=== PATIENT | female | born 1950 | race Caucasian/White ===

== ENCOUNTER → 2016-08-22 | Outpatient (CLI) | payer MEDICARE ==
[~2016-08-22] MED LIST: AMOX1TAB64 PO; GABA300C10 PO; HYDR-3138 PO; LEVO500T8 PO; LORA0.5T PO; METO-93 PO; METO25TA91 PO; METO50TA11 PO; ONDA4TAB13 SL; OXYC10TA32 PO; OXYC5CAP4 PO; OXYC5TAB2 PO; SULF1TAB24 PO
== END | disposition home or self-care (01) ==
LOC: CFH 07:51
PROVIDERS: ATTEND Internal Medicine Hematology & Oncology
DX: Z13.820 Encounter for screening for osteoporosis (principal); M81.0 Age-related osteoporosis without current pathological fracture; C77.3 Secondary and unspecified malignant neoplasm of axilla and upper limb lymph nodes
CPT/HCPCS: 77080

== ENCOUNTER → 2016-08-27 | Outpatient (CLI) | payer MEDICARE | END | disposition home or self-care (01) | LOC: PETCFH 09:49 | PROVIDERS: ATTEND Internal Medicine Hematology & Oncology | DX: C77.3 Secondary and unspecified malignant neoplasm of axilla and upper limb lymph nodes (principal) | CPT/HCPCS: 78306; A9503 ==

== ENCOUNTER → 2016-12-05 | Outpatient (CLI) | payer MEDICARE ==
[~2016-12-05] MED LIST changes: +GADOBUTROL 7.5 MMOL/7.5 ML PFS ONE; -HYDR-3138 PO; +HYDR-3237 PO; +METO-264 PO; -METO50TA11 PO; -OXYC10TA32 PO; +OXYC10TA47 PO; +OXYC5CAP2 PO; -OXYC5CAP4 PO
== END | disposition home or self-care (01) ==
LOC: CFH 08:12
PROVIDERS: ATTEND Registered Nurse Registered Nurse First Assistant
DX: M47.816 Spondylosis without myelopathy or radiculopathy, lumbar region (principal); M48.061 Spinal stenosis, lumbar region without neurogenic claudication; M41.86 Other forms of scoliosis, lumbar region; M53.3 Sacrococcygeal disorders, not elsewhere classified; M25.78 Osteophyte, vertebrae; R16.0 Hepatomegaly, not elsewhere classified; Z85.3 Personal history of malignant neoplasm of breast
CPT/HCPCS: 72110; 72158; 72220; A9585

== ENCOUNTER → 2017-04-15 | Outpatient (CLI) | payer MEDICARE ==
[~2017-04-15] MED LIST changes: -GADOBUTROL 7.5 MMOL/7.5 ML PFS ONE
== END ==
LOC: CFH 13:23
PROVIDERS: ATTEND Internal Medicine Hematology & Oncology
DX: C50.811 Malignant neoplasm of overlapping sites of right female breast (principal); R22.1 Localized swelling, mass and lump, neck; C77.3 Secondary and unspecified malignant neoplasm of axilla and upper limb lymph nodes; R53.83 Other fatigue; Z90.11 Acquired absence of right breast and nipple
CPT/HCPCS: 76536; 77065

== ENCOUNTER → 2017-04-25 | Outpatient (CLI) | payer MEDICARE ==
[~2017-04-25] MED LIST changes: +LIDOCAINE 1%, 20ML ONE
== END | disposition home or self-care (01) ==
LOC: RAD 08:43
PROVIDERS: ATTEND Internal Medicine Hematology & Oncology
DX: R22.1 Localized swelling, mass and lump, neck (principal); C77.3 Secondary and unspecified malignant neoplasm of axilla and upper limb lymph nodes; Z85.3 Personal history of malignant neoplasm of breast
CPT/HCPCS: 76942; 88173; J3490

== ENCOUNTER → 2017-05-21 | Outpatient (CLI) | payer MEDICARE ==
[~2017-05-21] MED LIST changes: -LIDOCAINE 1%, 20ML ONE
== END ==
LOC: CFH 09:54
PROVIDERS: ATTEND Internal Medicine Hematology & Oncology
DX: Z45.2 Encounter for adjustment and management of vascular access device (principal); C50.811 Malignant neoplasm of overlapping sites of right female breast; C77.3 Secondary and unspecified malignant neoplasm of axilla and upper limb lymph nodes; R53.83 Other fatigue
CPT/HCPCS: 76536

== ENCOUNTER → 2017-07-23 | Outpatient (CLI) | payer MEDICARE ==
[~2017-07-23] MED LIST changes: +LETR2.5T PO; +LOSA1TAB19 PO; +METO25TA35 PO; +MORP15TA3 PO
[2017-07-23 12:29] LABS: ALANINE AMINOTRANSFERASE 44 U/L (12-78); ANION GAP 5 mmol/L (5-15); CALCIUM 9.3 mg/dL (8.5-10.1); CHLORIDE 98 mmol/L (98-107); CREATININE 0.51 mg/dL (0.55-1.02)
[2017-07-23 12:31] LABS: ALKALINE PHOSPHATASE 66 U/L (45-117); BILIRUBIN,TOTAL 1.1 mg/dL (0.2-1.0)
== END | disposition home or self-care (01) ==
LOC: STAR 10:51
PROVIDERS: ATTEND Otolaryngology
DX: Z01.818 Encounter for other preprocedural examination (principal); R22.1 Localized swelling, mass and lump, neck; C80.1 Malignant (primary) neoplasm, unspecified
CPT/HCPCS: 36415; 80053; 93005

== ENCOUNTER 2017-07-30 12:35 | Day surgery (SDC) | payer MEDICARE ==
[~2017-07-30] VITALS: Ht 152.4 cm; Wt 50.6 kg
[~2017-07-30 12:35] MED LIST changes: +CEFAZOLIN 1,000 MG ONE; +DEXAMETHASONE 4 MG/ML, 1ML ONE; +EPHEDRINE 50 MG/ML, 1ML ONE; +ONDANSETRON 2MG/ML, 2ML ONE; +PROPOFOL 10 MG/ML, 20ML ONE; +ROCURONIUM 10 MG/ML,10ML ONE; +SUCCINYLCHOLINE 20 MG/ML, 10ML ONE
[2017-07-30] MEDS ORDERED: LACTATED RINGERS 1,000 ML IV SCH (13:03)
[2017-07-30 13:26] VITALS: BP 162/86
[2017-07-30] MEDS ORDERED: LIDOCAINE-MPF 1%, 2ML INFIL ONE (13:30)
[2017-07-30] MEDS ORDERED: LIDOCAINE/PF 1%, 30ML ONE (13:57)
[2017-07-30] MEDS ORDERED: EPINEPHRINE 1 MG/ML, 1ML ONE (13:58)
[2017-07-30] MEDS ORDERED: FENTANYL PF 250 MCG/5ML ONE (14:27)
[2017-07-30] MEDS ORDERED: MIDAZOLAM 1 MG/ML, 2ML ONE (14:27)
[2017-07-30] MEDS ORDERED: OXYcodone 5 MG/5 ML ORAL.SOL UDC ONE (16:15)
== END 2017-07-30 17:20 | disposition home or self-care (01) ==
LOC: OUT 12:35
PROVIDERS: ATTEND Otolaryngology
DX: C96.9 Malignant neoplasm of lymphoid, hematopoietic and related tissue, unspecified (principal); I10 Essential (primary) hypertension; Z88.8 Allergy status to other drugs, medicaments and biological substances
CPT/HCPCS: 38510; 88305; J0171; J0330; J0690; J1100; J2250; J2405; J2704; J3010; J3490

== ENCOUNTER → 2017-09-03 | Outpatient (CLI) | payer MEDICARE ==
[~2017-09-03] MED LIST changes: -CEFAZOLIN 1,000 MG ONE; -DEXAMETHASONE 4 MG/ML, 1ML ONE; -EPHEDRINE 50 MG/ML, 1ML ONE; -ONDANSETRON 2MG/ML, 2ML ONE; -PROPOFOL 10 MG/ML, 20ML ONE; -ROCURONIUM 10 MG/ML,10ML ONE; -SUCCINYLCHOLINE 20 MG/ML, 10ML ONE
== END | disposition home or self-care (01) ==
LOC: PETCFH 12:25
PROVIDERS: ATTEND Internal Medicine Hematology & Oncology
DX: M89.9 Disorder of bone, unspecified (principal); C50.811 Malignant neoplasm of overlapping sites of right female breast; C77.3 Secondary and unspecified malignant neoplasm of axilla and upper limb lymph nodes
CPT/HCPCS: 78815; A9552

== ENCOUNTER → 2017-09-17 | Outpatient (CLI) | payer MEDICARE | END | disposition home or self-care (01) | LOC: EDSTATUS 08:00 → CFH 08:02 | PROVIDERS: ATTEND Internal Medicine Cardiovascular Disease | DX: I08.1 Rheumatic disorders of both mitral and tricuspid valves (principal); I10 Essential (primary) hypertension; Z85.3 Personal history of malignant neoplasm of breast; Z88.6 Allergy status to analgesic agent; Z88.8 Allergy status to other drugs, medicaments and biological substances | CPT/HCPCS: 93306 ==

== ENCOUNTER → 2017-09-19 | Outpatient (CLI) | payer MEDICARE | END | disposition home or self-care (01) | LOC: ROC 08:26 | PROVIDERS: ATTEND Radiology Radiation Oncology | DX: C50.111 Malignant neoplasm of central portion of right female breast (principal) | CPT/HCPCS: G0463 ==

== ENCOUNTER → 2017-11-19 | Outpatient (CLI) | payer MEDICARE ==
[~2017-11-19] MED LIST changes: +GADOBUTROL 7.5 MMOL/7.5 ML PFS ONE; +OMNIPAQUE 350 MG/ML, 150 ML BOTTLE ONE
== END | disposition home or self-care (01) ==
LOC: CFH 09:02
PROVIDERS: ATTEND Internal Medicine Hematology & Oncology
DX: C79.51 Secondary malignant neoplasm of bone (principal); M50.30 Other cervical disc degeneration, unspecified cervical region; E04.2 Nontoxic multinodular goiter; R91.1 Solitary pulmonary nodule; C50.811 Malignant neoplasm of overlapping sites of right female breast
CPT/HCPCS: 70491; 70553; 71260; 74177; A9585; Q9967

== ENCOUNTER 2017-12-02 05:33 | Day surgery (SDC) | payer MEDICARE ==
[~2017-12-02] VITALS: Ht 152.4 cm; Wt 51.0 kg
[~2017-12-02 05:33] MED LIST changes: -GADOBUTROL 7.5 MMOL/7.5 ML PFS ONE; -OMNIPAQUE 350 MG/ML, 150 ML BOTTLE ONE
[2017-12-02] MEDS ORDERED: SODIUM CHLORIDE 0.9% 1,000 ML IV SCH (07:08)
[2017-12-02 07:09] VITALS: BP 158/92
[2017-12-02] MEDS ORDERED: FLUMAZENIL 0.1 MG/1 ML, 5ML ONE (08:12)
[2017-12-02] MEDS ORDERED: FENTANYL PF 100 MCG/2ML ONE (08:12)
[2017-12-02] MEDS ORDERED: NALOXONE 1 MG/ML, 2ML ONE (08:12)
[2017-12-02] MEDS ORDERED: MIDAZOLAM 1 MG/ML, 5ML ONE (08:12)
[2017-12-02] MEDS ORDERED: LIDOCAINE-MPF 1%, 5ML ONE (08:17)
== END 2017-12-02 09:55 | disposition home or self-care (01) ==
LOC: OUT 05:33
PROVIDERS: ATTEND Internal Medicine Hematology & Oncology
DX: C50.811 Malignant neoplasm of overlapping sites of right female breast (principal); Z87.891 Personal history of nicotine dependence
CPT/HCPCS: 32405; 77012; 99156; J2250; J3010; J7030; 99157; J2310

== ENCOUNTER → 2018-05-18 | Outpatient (CLI) | payer MEDICARE | END | disposition home or self-care (01) | LOC: CFH 07:43 | PROVIDERS: ATTEND Specialist | DX: C77.0 Secondary and unspecified malignant neoplasm of lymph nodes of head, face and neck (principal) | CPT/HCPCS: 76536 ==

== ENCOUNTER → 2018-05-29 | Outpatient (CLI) | payer MEDICARE | END | disposition home or self-care (01) | LOC: RAD 10:42 | PROVIDERS: ATTEND Specialist | DX: E04.1 Nontoxic single thyroid nodule (principal); Z85.3 Personal history of malignant neoplasm of breast | CPT/HCPCS: 10005; 88173 ==

== ENCOUNTER → 2018-06-26 | Outpatient (CLI) | payer MEDICARE ==
[~2018-06-26] MED LIST changes: +OMNIPAQUE 350 MG/ML, 100ML BOTTLE ONE
== END | disposition home or self-care (01) ==
LOC: PETCFH 08:01
PROVIDERS: ATTEND Internal Medicine Hematology & Oncology
DX: M85.89 Other specified disorders of bone density and structure, multiple sites (principal); C79.51 Secondary malignant neoplasm of bone; R91.1 Solitary pulmonary nodule
CPT/HCPCS: 71260; 74177; 78306; A9503; Q9967

== ENCOUNTER 2018-09-04 07:45 | Outpatient (CLI) | payer MEDICARE | END 2018-09-04 23:59 | disposition home or self-care (01) | LOC: CVU 07:45 | PROVIDERS: ATTEND Internal Medicine Hematology & Oncology | DX: I73.89 Other specified peripheral vascular diseases (principal); I70.8 Atherosclerosis of other arteries; I70.291 Other atherosclerosis of native arteries of extremities, right leg; I25.2 Old myocardial infarction; Z87.891 Personal history of nicotine dependence; Z85.3 Personal history of malignant neoplasm of breast | CPT/HCPCS: 93922; 93925; 93978 ==

== ENCOUNTER → 2018-12-15 | Outpatient (CLI) | payer MEDICARE ==
[~2018-12-15] MED LIST changes: +GABA600T7 PO; +HYDR-3245 PO; +MORP-29 PO; -MORP15TA3 PO; +ROSU10TA2 PO
== END | disposition home or self-care (01) ==
LOC: RAD 08:49
PROVIDERS: ATTEND Internal Medicine Hematology & Oncology
DX: M51.36 Other intervertebral disc degeneration, lumbar region (principal); M41.86 Other forms of scoliosis, lumbar region; J43.2 Centrilobular emphysema; I10 Essential (primary) hypertension; C50.811 Malignant neoplasm of overlapping sites of right female breast; M51.34 Other intervertebral disc degeneration, thoracic region; M19.079 Primary osteoarthritis, unspecified ankle and foot; M17.0 Bilateral primary osteoarthritis of knee; M19.072 Primary osteoarthritis, left ankle and foot; M19.071 Primary osteoarthritis, right ankle and foot; M19.042 Primary osteoarthritis, left hand; M19.041 Primary osteoarthritis, right hand; I70.0 Atherosclerosis of aorta
CPT/HCPCS: 71260; 74177; 78306; A9503; Q9967

== ENCOUNTER → 2019-01-22 | Outpatient (CLI) | payer MEDICARE ==
[~2019-01-22] MED LIST changes: -OMNIPAQUE 350 MG/ML, 100ML BOTTLE ONE
== END | disposition home or self-care (01) ==
LOC: CVU 08:58
PROVIDERS: ATTEND Surgery
DX: I70.293 Other atherosclerosis of native arteries of extremities, bilateral legs (principal); I77.1 Stricture of artery; M21.612 Bunion of left foot; Z95.820 Peripheral vascular angioplasty status with implants and grafts; Z87.891 Personal history of nicotine dependence; Z85.3 Personal history of malignant neoplasm of breast
CPT/HCPCS: 93922; 93925

== ENCOUNTER 2019-02-18 08:40 | Outpatient (CLI) | payer MEDICARE ==
[~2019-02-18 08:40] MED LIST changes: -LETR2.5T PO; +LETR2.5T3 PO
== END 2019-02-18 23:59 | disposition home or self-care (01) ==
LOC: CFH 08:40
PROVIDERS: ATTEND Internal Medicine Cardiovascular Disease
DX: I08.0 Rheumatic disorders of both mitral and aortic valves (principal)
CPT/HCPCS: 93306; 93356

== ENCOUNTER 2019-09-07 10:27 | Outpatient (CLI) | payer MEDICARE ==
[2019-09-07 10:48] LABS: BASOPHILS # (AUTO) 0.01 x10^3/uL (0-0.1); BASOPHILS % (AUTO) 0 % (0-1); EOSINOPHILS # (AUTO) 0.02 x10^3/uL (0-0.4); EOSINOPHILS % (AUTO) 1 % (1-7); LYMPHOCYTES % (AUTO) 22 % (22-44); MD NO; MEAN CORPUSCULAR HEMOGLOBIN 34.1 pg (27.0-34.8); MEAN CORPUSCULAR HGB CONC 34.3 g/dL (32.4-35.8); MEAN CORPUSCULAR VOLUME 99.6 fL (80-100); MEAN PLATELET VOLUME 6.6 fL (7.4-10.4); MONOCYTES # (AUTO) 0.29 x10^3/uL (0.2-0.8); MONOCYTES % (AUTO) 9 % (2-9); NEUTROPHILS # (AUTO) 2.14 x10^3/uL (1.8-6.8); NEUTROPHILS % (AUTO) 68 % (42-75); PLATELET COUNT 220 x10^3/uL (130-400); RED BLOOD COUNT 4.32 x10^6/uL (3.82-5.3); RED CELL DISTRIBUTION WIDTH 12.3 % (9.6-15.2)
[2019-09-07 11:00] LABS: ALANINE AMINOTRANSFERASE 56 U/L (12-78); ALBUMIN 3.8 g/dL (3.4-5.0); ANION GAP 4 mmol/L (5-15); CHLORIDE 96 mmol/L (98-107); CREATININE 0.48 mg/dL (0.55-1.02)
[2019-09-07 11:03] LABS: ALKALINE PHOSPHATASE 77 U/L (45-117); BILIRUBIN,TOTAL 0.7 mg/dL (0.2-1.0); TOTAL PROTEIN 7.5 g/dL (6.4-8.2)
== END 2019-09-07 23:59 | disposition home or self-care (01) ==
LOC: RAD 10:27
PROVIDERS: ATTEND Internal Medicine Hematology & Oncology
DX: C77.3 Secondary and unspecified malignant neoplasm of axilla and upper limb lymph nodes (principal); C50.811 Malignant neoplasm of overlapping sites of right female breast; G62.2 Polyneuropathy due to other toxic agents; I97.2 Postmastectomy lymphedema syndrome; R93.7 Abnormal findings on diagnostic imaging of other parts of musculoskeletal system; M85.80 Other specified disorders of bone density and structure, unspecified site; J98.4 Other disorders of lung; I70.0 Atherosclerosis of aorta; M54.9 Dorsalgia, unspecified
CPT/HCPCS: 36415; 71260; 74177; 78306; 80053; 82306; 85025; 86300; A9503; Q9967

== ENCOUNTER → 2019-10-12 | Outpatient (CLI) | payer MEDICARE | END | disposition home or self-care (01) | LOC: CVU 07:34 | PROVIDERS: ATTEND Surgery | DX: I70.213 Atherosclerosis of native arteries of extremities with intermittent claudication, bilateral legs (principal); Z85.3 Personal history of malignant neoplasm of breast; Z72.0 Tobacco use | CPT/HCPCS: 93922; 93925 ==

== ENCOUNTER → 2019-10-20 | Outpatient (CLI) | payer MEDICARE ==
[~2019-10-20] MED LIST changes: +OMNIPAQUE 350 MG/ML, 100ML BOTTLE ONE
== END | disposition home or self-care (01) ==
LOC: CFH 10:47
PROVIDERS: ATTEND Internal Medicine Hematology & Oncology
DX: Z12.31 Encounter for screening mammogram for malignant neoplasm of breast (principal)
CPT/HCPCS: 77067; Q9967

== ENCOUNTER → 2020-02-21 | Outpatient (CLI) | payer MEDICARE | END | disposition home or self-care (01) | LOC: RAD 10:05 | PROVIDERS: ATTEND Internal Medicine Hematology & Oncology | DX: C50.811 Malignant neoplasm of overlapping sites of right female breast (principal); M47.812 Spondylosis without myelopathy or radiculopathy, cervical region; E04.2 Nontoxic multinodular goiter; J43.9 Emphysema, unspecified; G95.89 Other specified diseases of spinal cord | CPT/HCPCS: 70491; 71260; 74160; 78306; A9503; Q9967 ==

== ENCOUNTER 2020-03-01 13:39 | Outpatient (CLI) | payer MEDICARE ==
[~2020-03-01 13:39] MED LIST changes: -OMNIPAQUE 350 MG/ML, 100ML BOTTLE ONE
[2020-03-01] MEDS ORDERED: LIDOCAINE 1%, 10ML ONE (14:05)
== END 2020-03-01 23:59 | disposition home or self-care (01) ==
LOC: RAD 13:39
PROVIDERS: ATTEND Internal Medicine Hematology & Oncology
DX: R22.1 Localized swelling, mass and lump, neck (principal); F17.210 Nicotine dependence, cigarettes, uncomplicated; Z79.899 Other long term (current) drug therapy; Z72.89 Other problems related to lifestyle; Z88.8 Allergy status to other drugs, medicaments and biological substances; Z85.3 Personal history of malignant neoplasm of breast
CPT/HCPCS: 10005; 20206; 76942; 88305

== ENCOUNTER → 2020-09-22 | Outpatient (CLI) | payer MEDICARE ==
[~2020-09-22] MED LIST changes: -HYDR-3245 PO; +HYDR1TAB53 PO; +OMNIPAQUE 350 MG/ML, 100ML BOTTLE ONE; +SULF-23 PO; -SULF1TAB24 PO
== END | disposition home or self-care (01) ==
LOC: CFH 09:04
PROVIDERS: ATTEND Internal Medicine Hematology & Oncology
DX: C50.811 Malignant neoplasm of overlapping sites of right female breast (principal); E04.1 Nontoxic single thyroid nodule
CPT/HCPCS: 70491; Q9967

== ENCOUNTER 2020-10-17 12:00 | Outpatient (CLI) | payer MEDICARE ==
[~2020-10-17 12:00] MED LIST changes: -OMNIPAQUE 350 MG/ML, 100ML BOTTLE ONE
[2020-10-17 12:40] LABS: BASOPHILS % (AUTO) 0 % (0-1); EOSINOPHILS % (AUTO) 0 % (1-7); LYMPHOCYTES % (AUTO) 17 % (22-44); MEAN CORPUSCULAR HEMOGLOBIN 34.9 pg (27.0-34.8); MEAN CORPUSCULAR HGB CONC 35.1 g/dL (32.4-35.8); MEAN PLATELET VOLUME 6.8 fL (7.4-10.4); MONOCYTES % (AUTO) 9 % (2-9); NEUTROPHILS % (AUTO) 73 % (42-75); PLATELET COUNT 160 x10^3/uL (130-400); RED BLOOD COUNT 3.69 x10^6/uL (3.82-5.3); RED CELL DISTRIBUTION WIDTH 12.5 % (9.6-15.2)
[2020-10-17 12:41] LABS: ALANINE AMINOTRANSFERASE 40 U/L (12-78); ALBUMIN 3.3 g/dL (3.4-5.0); ANION GAP 4 mmol/L (5-15); CALCIUM 8.4 mg/dL (8.5-10.1); CHLORIDE 91 mmol/L (98-107); CREATININE 0.39 mg/dL (0.55-1.02)
[2020-10-17 12:44] LABS: ALKALINE PHOSPHATASE 70 U/L (45-117)
[2020-10-17] MEDS ORDERED: OMNIPAQUE 350 MG/ML, 100ML BOTTLE ONE (13:24)
== END 2020-10-17 23:59 | disposition home or self-care (01) ==
LOC: LAB 12:00 → RAD 23:59
PROVIDERS: ATTEND Internal Medicine Hematology & Oncology
DX: C50.811 Malignant neoplasm of overlapping sites of right female breast (principal); C77.3 Secondary and unspecified malignant neoplasm of axilla and upper limb lymph nodes; J43.9 Emphysema, unspecified; M51.34 Other intervertebral disc degeneration, thoracic region; J98.4 Other disorders of lung; G62.2 Polyneuropathy due to other toxic agents; I97.2 Postmastectomy lymphedema syndrome; R93.7 Abnormal findings on diagnostic imaging of other parts of musculoskeletal system; M25.50 Pain in unspecified joint; G62.0 Drug-induced polyneuropathy; M54.9 Dorsalgia, unspecified; M85.80 Other specified disorders of bone density and structure, unspecified site; J84.10 Pulmonary fibrosis, unspecified
CPT/HCPCS: 36415; 71260; 74177; 80053; 85025; Q9967

== ENCOUNTER 2020-10-20 13:31 | Outpatient (CLI) | payer MEDICARE ==
[2020-10-20] MEDS ORDERED: LIDOCAINE 1%, 10ML ONE (13:51)
== END 2020-10-20 23:59 | disposition home or self-care (01) ==
LOC: RAD 13:31
PROVIDERS: ATTEND Internal Medicine Hematology & Oncology
DX: R22.1 Localized swelling, mass and lump, neck (principal); C79.89 Secondary malignant neoplasm of other specified sites; Z85.3 Personal history of malignant neoplasm of breast
CPT/HCPCS: 10005; 20206; 76942; 88305; 88360; 88361

== ENCOUNTER 2020-10-31 11:41 | Outpatient (CLI) | payer MEDICARE | END 2020-10-31 23:59 | disposition home or self-care (01) | LOC: RAD 11:41 | PROVIDERS: ATTEND Internal Medicine Hematology & Oncology | DX: C50.811 Malignant neoplasm of overlapping sites of right female breast (principal); M51.36 Other intervertebral disc degeneration, lumbar region; M41.86 Other forms of scoliosis, lumbar region | CPT/HCPCS: 78306; A9503 ==